=== PATIENT | male | born 1985 | race Caucasian/White ===

== ENCOUNTER 2017-08-24 05:40 | Emergency (ER) | END 2017-08-24 09:56 | disposition home or self-care (01) ==

== ENCOUNTER 2017-08-26 19:03 | Emergency (ER) | END 2017-08-26 20:32 | disposition home or self-care (01) ==

== ENCOUNTER 2017-09-01 20:13 | Emergency (ER) | END 2017-09-01 23:57 | disposition home or self-care (01) ==